=== PATIENT | male | born 1960 | race Hispanic/Latino ===

== ENCOUNTER 2017-09-11 09:51 | Emergency (ER) | payer SELFPAY ==
[~2017-09-11] VITALS: Ht 165.1 cm; Wt 68.0 kg
[2017-09-11] MEDS ORDERED: HYDROCODONE/APAP 7.5MG-325MG 1 EA TAB PO PRN (10:00)
[2017-09-11 10:37] LABS: BASOPHILS % 0.4 % (0.0-1.0); EOSINOPHILS % 9.9 % (0.0-6.0); HEMATOCRIT 40.5 % (38.2-49.6); HEMOGLOBIN 13.6 g/dL (14.0-18.0); LYMPHOCYTES # (AUTO) 2.2 (1.0-3.2); LYMPHOCYTES % 21.6 % (18.0-39.1); MEAN CORPUSCULAR HEMOGLOBIN 30.6 pg (28-32); MEAN CORPUSCULAR HGB CONC 33.6 g/dL (31-35); MONOCYTES # (AUTO) 0.9 (0.2-0.8); MONOCYTES % 8.6 % (4.4-11.3); NEUTROPHILS % 59.2 % (38.7-80.0); PLATELET COUNT 288 x10e3/uL (140-360); RED BLOOD COUNT 4.45 x10e6/uL (4.3-5.7); RED CELL DISTRIBUTION WIDTH 11.8 % (11.7-14.4)
[2017-09-11 10:56] LABS: CALCIUM 9.6 mg/dL (8.4-10.2); CREATININE, SERUM 1.56 mg/dL (0.72-1.25)
--- NOTE | 2017-09-11 11:50 | Diagnostic Imaging Report ---
PROCEDURE:ANKLE 3+ VIEWS LEFT INDICATION:Left ankle pain COMPARISON:None. FINDINGS: Normal mineralization. No acute displaced fracture or dislocation. No lytic or blastic lesions. Ankle mortise is preserved. No osteochondral lesion. No significant soft tissue swelling. CONCLUSION: No acute abnormalities. Bladimir Adair M.D. Dictated by: Bladimir Adair M.D. on 09/11/2017 at 11:58 Electronically approved by: Bladimir Adair M.D. on 09/11/2017 at 11:58
--- NOTE | 2017-09-11 11:54 | Diagnostic Imaging Report ---
PROCEDURE:X-RAY LEFT FOOT, COMPLETE COMPARISON:None. INDICATIONS:LEFT FOOT PAIN FINDINGS: Normal mineralization. No acute displaced fractures or dislocations. No lytic or blastic lesions. No cortical erosion or destruction. Bipartite tibial sesamoid. 7 mm well corticated oval shaped bony fragment medial to the navicular bone, consistent with an os tibiale externum. Vascular calcifications. No significant soft tissue swelling. CONCLUSION: No acute abnormalities. Bladimir Adair M.D. Dictated by: Bladimir Adair M.D. on 09/11/2017 at 12:02 Electronically approved by: Bladimir Adair M.D. on 09/11/2017 at 12:02
[2017-09-11 12:14] VITALS: BP 109/86
== END 2017-09-11 12:30 | disposition home or self-care (01) ==
LOC: ER 09:51
DX: M25.572 Pain in left ankle and joints of left foot (principal); M10.372 Gout due to renal impairment, left ankle and foot; R26.2 Difficulty in walking, not elsewhere classified
CPT/HCPCS: 36415; 80048; 84550; 85025; 99284

== ENCOUNTER 2018-03-26 12:42 | Emergency (ER) | payer SELFPAY ==
[~2018-03-26] VITALS: Ht 165.1 cm; Wt 68.0 kg
[2018-03-26] MEDS ORDERED: HYDROCODONE/APAP 10MG-325MG TAB PO ONE ×2 (13:15→16:45)
[2018-03-26] MEDS ORDERED: DEXAMETHASONE SOD PHOS 10 MG/1 ML VIAL INJ ONE (16:45)
[2018-03-26] MEDS ORDERED: KETOROLAC TROMETHAMINE 60 MG/2 ML VIAL IM ONE (16:45)
[2018-03-26 17:21] VITALS: BP 133/70
--- NOTE | 2018-03-26 20:52 | Diagnostic Imaging Report ---
PROCEDURE:X-RAY LEFT KNEE, THREE OR MORE VIEWS COMPARISON:None. INDICATIONS:FELL, PAIN IN LEFT KNEE FINDINGS: Normal mineralization. No acute displaced fracture or dislocation. No lytic or blastic lesion. Joint spaces are preserved. Moderate suprapatellar effusion. CONCLUSION: Moderate suprapatellar effusion. No acute displaced fracture or dislocation. Bladimir Adair M.D. Dictated by: Bladimir Adair M.D. on 03/26/2018 at 14:55 Electronically approved by: Bladimir Adair M.D. on 03/26/2018 at 14:55
== END 2018-03-26 17:22 | disposition home or self-care (01) ==
LOC: ER 12:42
DX: M25.562 Pain in left knee (principal); R26.2 Difficulty in walking, not elsewhere classified
CPT/HCPCS: 73562; 99284; J1100; J1885

== ENCOUNTER 2018-06-30 08:19 | Emergency (ER) | payer SELFPAY ==
[~2018-06-30] VITALS: Ht 165.1 cm; Wt 68.0 kg
--- NOTE | 2018-06-30 10:23 | Diagnostic Imaging Report ---
Exam: Right foot series, 3 views. Clinical History: Swelling Comparison: None. Findings: 3 views of the right foot. There is normalbone mineralization. Negative for fracture or dislocation. Joint spaces are preserved. Lis franc alignment is normal. Negative for abnormal soft tissue calcification. Impression: Unremarkable right foot radiographs. Signed by: Dr. Jesús Richards MD on 06/30/2018 10:20 AM
[2018-06-30] MEDS ORDERED: ULTRAM50 MG PO (10:53)
[2018-06-30 11:18] VITALS: BP 123/82
== END 2018-06-30 11:22 | disposition home or self-care (01) ==
LOC: ER 08:19
DX: M25.571 Pain in right ankle and joints of right foot (principal); W22.8XXA Striking against or struck by other objects, initial encounter
CPT/HCPCS: 99283

== ENCOUNTER 2018-07-02 14:08 | Emergency (ER) | payer SELFPAY ==
[~2018-07-02] VITALS: Ht 165.1 cm; Wt 68.0 kg
[~2018-07-02 14:08] MED LIST: ULTRAM50 MG PO
[2018-07-02] MEDS ORDERED: KETOROLAC TROMETHAMINE 60 MG/2 ML VIAL IM ONE (14:30)
[2018-07-02] MEDS ORDERED: DEXAMETHASONE SOD PHOS 10 MG/1 ML VIAL INJ ONE (14:30)
[2018-07-02] MEDS ORDERED: DEXAMETHASONE SOD PHOS 10 MG/1 ML VIAL ONE (14:46)
[2018-07-02 15:32] VITALS: BP 106/78
[2018-07-02] MEDS ORDERED: COLCHICINE 0.6 MG TAB PO ONE (17:00)
== END 2018-07-02 15:41 | disposition home or self-care (01) ==
LOC: ER 14:08
DX: M10.071 Idiopathic gout, right ankle and foot (principal); F17.210 Nicotine dependence, cigarettes, uncomplicated
CPT/HCPCS: 99282; J1100; J1885

== ENCOUNTER → 2018-10-30 | Emergency (ER) | payer SELFPAY ==
[~2018-10-30] VITALS: Ht 165.1 cm; Wt 68.0 kg
[~2018-10-30] MED LIST changes: +BUPIVACAINE HCL 0.5% 10ML MPF VIAL INJ ONE; +HYDROMORPHONE 2MG/ML 2 MG/ML ML IM PRN; +METHYLPREDNISOLONE ACETATE 80 MG/ML VIAL INJ ONE; +ONDANSETRON HCL INJ 2MG/ML 2ML 2 MG/ML VIAL ONE; +ULTRAM 50MG50 MG PO
[2018-10-31 06:05] VITALS: BP 133/96
== END | disposition home or self-care (01) ==
LOC: ER 23:44
DX: M25.562 Pain in left knee (principal); M25.462 Effusion, left knee; M10.9 Gout, unspecified
CPT/HCPCS: 99283

== ENCOUNTER 2018-12-06 10:17 | Emergency (ER) | payer SELFPAY ==
[~2018-12-06] VITALS: Ht 165.1 cm; Wt 68.0 kg
[~2018-12-06 10:17] MED LIST changes: -BUPIVACAINE HCL 0.5% 10ML MPF VIAL INJ ONE; -HYDROMORPHONE 2MG/ML 2 MG/ML ML IM PRN; -METHYLPREDNISOLONE ACETATE 80 MG/ML VIAL INJ ONE; -ONDANSETRON HCL INJ 2MG/ML 2ML 2 MG/ML VIAL ONE
== END 2018-12-06 10:42 | disposition left against medical advice (07) ==
LOC: ER 10:17
DX: Z76.0 Encounter for issue of repeat prescription (principal)

== ENCOUNTER 2020-02-08 16:21 | Emergency (ER) | payer SELFPAY ==
[~2020-02-08] VITALS: Ht 165.1 cm; Wt 68.0 kg
--- OUTSIDE RECORDS SUMMARY | 2020-02-08 16:24 | XMS REPORT ---
Author Author [facility] Organization [facility] Address 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 Allergies, Adverse Reactions, Alerts This patient has no known allergies or adverse reactions. Medications Ordered Medication Name Filled Medication Name Start Date Stop Da te Current Medication? Ordering Clinician Indication Dosage Frequency Signature (SIG) Comments Components Source Tramadol Hcl (Ultram) 50 Mg Tablet Tramadol Hcl (Ultram) 50 Mg Tablet 2018-06-30 00:00:00 Yes Oliverio Sales Md 50 Every 6 Hours as needed for Pain [facility] Procedures This patient has no known procedures. Encounters Start Date/Time End Date/Time [facility] ID Source 2018-07-02 14:08:00 2018-07-02 15:41:00 Departed Emergency Room [facility] [id number] [facility] 2018-06-30 08:19:00 2018-06-30 11:22:00 Departed Emergency Room 1 OLIVERIO SALES [facility] [id number] [facility] 2018-03-26 12:42:00 2018-03-26 17:22:00 Departed Emergency Room 1 FREDDY MELARA [facility] [id number] [facility] 2017-09-11 09:51:00 2017-09-11 12:30:00 Departed Emergency Room ER ELIO IRVING [facility] [id number] [facility] Results Test Description Test Time Test Comments Results Result Comments Source KNEE LEFT THREE VIEWS 2018-10-31 07:47:00 [place] [address] Patient Name: CONNOR JAVED MR #: [id number] : 1960 Age/Sex: 57/M Req #: [id number] Adm Physician: Ordered by: CLARISA DAWSON FACE WORKER Report #: [id number] Location: ER Room/Bed: Procedure: [id number] DX/KNEE LEFT THREE VIEWS Exam Date: 10/30/18 Exam Time: 1704 REPORT STATUS: Signed Exam: Left knee 3 views History: Anterior knee pain, trauma Comparison: None. Findings: No acute, displaced fracture or dislocation. Joint space is well-maintained. No definite joint effusion. Mild prepatellar soft tissue swelling. No focal soft tissue abnormalities otherwise. Impression: Mild prepatellar soft tissue swelling without underlying acute osseous abnormality. Signed by: Dr. Gladis Massey M.D. on 10/31/2018 7:49 AM Dictated By: GLADIS MASSEY MD Transcribed By: MANA on 10/31/1849 COPY TO: KELLEN DAWSONDRO Leticia FACE WORKER FOOT RIGHT COMPLETE 2018-06-30 10:18:00 [facility] [address] [address] Patient Name: CONNOR WARE MR #: [id number] : 1960 Age/Sex: 57/M Req #: [id number] Adm Physician: Ordered by: OLIVERIO SALES MD Report #: [id number] Location: ER Room/Bed: Procedure: [id number] DX/FOOT RIGHT COMPLETE Exam Date: 06/30/18 Exam Time: 0945 REPORT STATUS: Signed Exam: Right foot series, 3 views. Clinical History: Swelling Comparison: None. Findings: 3 views of the right foot. There is normalbone mineralization. Negative for fracture or dislocation. Joint spaces are preserved. Lis franc alignment is normal. Negative for abnormal soft tissue calcification. Impression: Unremarkable right foot radiographs. Signed by: Dr. Petros Núñez MD on 06/30/2018 10:20 AM Dictated By: PETROS NÚÑEZ MD 1020 Transcribed By: MANA on 06/30/18 1020 COPY TO: OLIVERIO SALES MD KNEE LEFT THREE VIEWS 2018-03-26 14:55:00 [facility] [address] [address] Patient Name: CONNOR WARE MR #: [id number] : 1960 Age/Sex: 57/M Req #: [id number] Adm Physician: Ordered by: JANAK SORENOSN FACE WORKER Report #: [id number] Location: ER Room/Bed: Procedure: [id number] DX/KNEE LEFT THREE VIEWS Exam Date: 03/26/18 Exam Time: 1410 REPORT STATUS: Signed PROCEDURE: X-RAY LEFT KNEE, THREE OR MORE VIEWS COMPARISON: None. INDICATIONS: FELL, PAIN IN LEFT KNEE FINDINGS: Normal mineralization. No acute displaced fracture or dislocation. No lytic or blastic lesion. Joint spaces are preserved. Moderate suprapatellar effusion. CONCLUSION: Moderate suprapatellar effusion. No acute displaced fracture or dislocation. Bladimir Aguirre M.D. Dictated by: Bladimir Aguirre M.D. on 03/26/2018 at 14:55 Electronically approved by: Bladimir Aguirre M.D. on 03/26/2018 at 14:55 Dictated By: BLADIMIR AGUIRRE MD 1455 Transcribed By: SAWYER on 03/26/18 1455 COPY TO: JANAK SORENSON FACE WORKER Sodium Level 2017-09-11 11:00:00 Test Item Sodium Level (test code = 2951-2) 142 136-145 [facility] Hhgyn4229-91-90 11:00:00* Test Item Value Reference Range Interpretation Comments Potassium Level (test code = 2823-3) 4.0 3.5-5.1 [facility] HospitalChloride Rdqmg6328-26-06 11:00:00* Test Item Value Reference Range Interpretation Comments Chloride Level (test code = 2075-0) 109 98-107 [facility] HospitalCarbon Dioxide Nrbjy8275-05-79 11:00:00* Test Item Value Reference Range Interpretation Comments Carbon Dioxide Level (test code = 2028-9) 23 22-29 [facility] HospitalAnion Hmw8587-14-57 11:00:00* Test Item Value Reference Range Interpretation Comments Anion Gap (test code = 14459-7) 14.0 8-16 [facility] HospitalBlood Urea Xgcifroa9307-27-96 11:00:00* Test Item Value Reference Range Interpretation Comments Blood Urea Nitrogen (test code = 3094-0) 30 7- [facility] HospitalCreatinine2017-12-19 11:00:00* Test Item Value Reference Range Interpretation Comments Creatinine (test code = 2160-0) 1.56 0.72-1.25 [facility] HospitalBUN/Creatinine Ilfqx2145-71-25 11:00:00* Test Item Value Reference Range Interpretation Comments BUN/Creatinine Ratio (test code = 3097-3) 19 6- [facility] HospitalEstimat Glomerular Filtration Rate 2017-09-11 11:00:00* Test Item Value Reference Range Interpretation Comments Estimat Glomerular Filtration Rate (test code = 486977852) 46 >60 Ranges were taken from the National Kidney Disease Education Program and the [place] [facility] [employer] Foundation literature.Reference ranges:60 or greater: Kifpmg89-60 ( for 3 consecutive months): Chronic kidney disease 15 or less: Kidney failureTexas Children's HospitalGlucose Mobdt5732-72-33 11:00:00* Test Item Value Reference Range Interpretation Comments Glucose Level (test code = BBY9457) 105 74-118 [facility] HospitalCalcium Qggrn2558-67-59 11:00:00* Test Item Value Reference Range Interpretation Comments Calcium Level (test code = 74817-6) 9.6 8.4-10.2 [facility] HospitalUric Qdfl1508-97-85 11:00:00* Test Item Value Reference Range Interpretation Comments Uric Acid (test code = 3084-1) 8.3 3.5-7.2 [facility] HospitalWhite Blood Jbbnn2273-10-38 10:56:00* Test Item Value Reference Range Interpretation Comments White Blood Count (test code = 6690-2) 10.18 4.8-10.8 [facility] HospitalRed Blood Wdhyq7852-04-71 10:56:00* Test Item Value Reference Range Interpretation Comments Red Blood Count (test code = 789-8) 4.45 4.3-5.7 [facility] HospitalHemoglobin2017-12-19 10:56:00* Test Item Value Reference Range Interpretation Comments Hemoglobin (test code = 02563-5) 13.6 14.0-18.0 [facility] HospitalHematocrit2017-12-19 10:56:00* Test Item Value Reference Range Interpretation Comments Hematocrit (test code = 4544-3) 40.5 38.2-49.6 [facility] HospitalMean Corpuscular Ueofxw0629-57-55 10:56:00* Test Item Value Reference Range Interpretation Comments Mean Corpuscular Volume (test code = 787-2) 91.0 81-99 [facility] HospitalMean Corpuscular Rozmjrxwqg5343-48-31 10:56:00* Test Item Value Reference Range Interpretation Comments Mean Corpuscular Hemoglobin (test code = 785-6) 30.6 28-32 [facility] Hemoglobin Concent 2017-09-11 10:56:00* Test Item Value Reference Range Interpretation Comments Mean Corpuscular Hemoglobin Concent (test code = 786-4) 33.6 31-35 [facility] HospitalRed Cell Distribution Zpiix0958-81-40 10:56:00* Test Item Value Reference Range Interpretation Comments Red Cell Distribution Width (test code = 52817-0) 11.8 11.7 -14.4 [facility] HospitalPlatelet Pxsbc6272-85-75 10:56:00* Test Item Value Reference Range Interpretation Comments Platelet Count (test code = 777-3) 288 140-360 [facility] HospitalNeutrophils (%) (Auto)2017-09-11 10:56:00 * Test Item Value Reference Range Interpretation Comments Neutrophils (%) (Auto) (test code = 54930-4) 59.2 38.7-80.0 [facility] HospitalLymphocytes (%) (Auto)2017-09-11 10:56:00 * Test Item Value Reference Range Interpretation Comments Lymphocytes (%) (Auto) (test code = 736-9) 21.6 18.0-39.1 [facility] HospitalMonocytes (%) (Auto)2017-09-11 10:56:00* Test Item Value Reference Range Interpretation Comments Monocytes (%) (Auto) (test code = 5905-5) 8.6 4.4-11.3 [facility] HospitalEosinophils (%) (Auto)2017-09-11 10:56:00 * Test Item Value Reference Range Interpretation Comments Eosinophils (%) (Auto) (test code = 713-8) 9.9 0.0-6.0 [facility] HospitalBasophils (%) (Auto)2017-09-11 10:56:00* Test Item Value Reference Range Interpretation Comments Basophils (%) (Auto) (test code = 706-2) 0.4 0.0-1.0 [facility] HospitalIM GRANULOCYTES %2017-09-11 10:56:00* Test Item Value Reference Range Interpretation Comments IM GRANULOCYTES % (test code = IM GRANULOCYTES %) 0.3 0.0- 1.0 [facility] HospitalNeutrophils # (Auto)2017-09-11 10:56:00* Test Item Value Reference Range Interpretation Comments Neutrophils # (Auto) (test code = 751-8) 6.0 2.1-6.9 [facility] HospitalLymphocytes # (Auto)2017-09-11 10:56:00* Test Item Value Reference Range Interpretation Comments Lymphocytes # (Auto) (test code = 55018-9) 2.2 1.0-3.2 [facility] HospitalMonocytes # (Auto)2017-09-11 10:56:00* Test Item Value Reference Range Interpretation Comments Monocytes # (Auto) (test code = 742-7) 0.9 0.2-0.8 [facility] HospitalEosinophils # (Auto)2017-09-11 10:56:00* Test Item Value Reference Range Interpretation Comments Eosinophils # (Auto) (test code = 711-2) 1.0 0.0-0.4 [facility] HospitalBasophils # (Auto)2017-09-11 10:56:00* Test Item Value Reference Range Interpretation Comments Basophils # (Auto) (test code = 704-7) 0.0 0.0-0.1 [facility] HospitalAbsolute Immature Granulocyte (auto 2017-09-11 10:56:00* Test Item Value Reference Range Interpretation Comments Absolute Immature Granulocyte (auto (daniel t code = Absolute Immature Granulocyte (auto) 0.03 0-0.1 [facility] HospitalANKLE 3+ VIEWS LEFT [facility] [address] [address] Patient Name: CONNOR WARE MR #: [id number] : 1960 Age/Sex: 56/M Req #: [id number] Adm Physician: Ordered by: ELIO IRVING MD Report #: [id number] Location: ER Room/Bed: Procedure: [id number] DX/ANKLE 3+ VIEWS LEFT Exam D ate: 09/11/17 Exam Time: 1020 REPORT STATUS: Si gned PROCEDURE: ANKLE 3+ VIEWS LEFT INDICATION: Left ankle pain CO MPARISON: None. FINDINGS: Normal mineralization. No acute displaced frac ture or dislocation. No lytic or blastic lesions. Ankle mortise is preser luis. No osteochondral lesion. No significant soft tissue swelling. CONCLUSION: No acute abnormalities. Bladimir Aguirre M.D. Dictated by: Bladimir Aguirre M.D. on 09/11/2017 at 11:58 E lectronically approved by: Bladimir Aguirre M.D. on 09/11/2017 at 11:58 Dictated By: BLADIMIR AGUIRRE MD 1158 Transcribed By: SAWYER on 09/11/17 1158 COPY TO: ELIO IRVING MD FOOT LEFT COMPLETE [place] [address] Patient Name: CONNOR WARE MR #: [id number] : 1960 Age/Sex: 56/M Req #: [id number] Adm Physician: Ordered by: ELIO IRVING MD Report #: [id number] Location: ER Room/Bed: Procedure: [id number] DX/FOOT LEFT COMPLETE Exam Da te: 09/11/17 Exam Time: 1020 REPORT STATUS: Sig erinn PROCEDURE: X-RAY LEFT FOOT, COMPLETE COMPARISON: None. IN DICATIONS: LEFT FOOT PAIN FINDINGS: Normal mineralization. No acute displaced fractures or dislocations. No lytic or blastic lesions. No cortic al erosion or destruction. Bipartite tibial sesamoid. 7 mm well corticated o raul shaped bony fragment medial to the navicular bone, consistent with an os tibiale externum. Vascular calcifications. No significant soft tissue swelli ng. CONCLUSION: No acute abnormalities. Bladimir Aguirre M.D. Dictated by: Bladimir Aguirre M.D. on 09/11/2017 at 12:02 Mi ctronically approved by: Bladimir Aguirre M.D. on 09/11/2017 at 12:02 Dictated By: BLADIMIR AGUIRRE MD 01 Transcribed By: SAWYER on 09/11/171201 COPY TO: ELIO IRVING MD
[2020-02-08] MEDS ORDERED: HYDROCODONE/APAP 7.5MG-325MG 1 EA TAB PO PRN (16:45)
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
== END 2020-02-08 18:09 | disposition home or self-care (01) ==
LOC: ER 16:21
DX: S00.83XA Contusion of other part of head, initial encounter (principal); R51 Headache; Y04.8XXA Assault by other bodily force, initial encounter; Y92.89 Other specified places as the place of occurrence of the external cause; M10.9 Gout, unspecified
CPT/HCPCS: 70450; 70486; 72125; 99282

== ENCOUNTER 2020-10-09 20:49 | Emergency (ER) | payer SELFPAY ==
[~2020-10-09] VITALS: Ht 165.1 cm; Wt 68.0 kg
[2020-10-09] MEDS ORDERED: COLCRYS0.6 MG PO (21:06)
[2020-10-09] MEDS ORDERED: ULTRAM50 MG PO (21:06)
== END 2020-10-09 21:15 | disposition home or self-care (01) ==
LOC: ER 20:56
DX: M10.9 Gout, unspecified (principal)
CPT/HCPCS: 99282

== ENCOUNTER 2021-03-18 10:01 | Emergency (ER) | payer SELFPAY ==
[~2021-03-18] VITALS: Ht 172.7 cm; Wt 72.6 kg
[~2021-03-18 10:01] MED LIST changes: +COLCRYS0.6 MG PO
[2021-03-18] MEDS ORDERED: METHYLPREDNISOLONE SOD SUCC 125 MG/2ML VIAL IM ONE (10:30)
[2021-03-18] MEDS ORDERED: KETOROLAC TROMETHAMINE 60 MG/2 ML VIAL IM ONE (10:30)
[2021-03-18] MEDS ORDERED: METHOCARBAMOL 750 MG TAB PO ONE (10:30)
[2021-03-18 11:37] VITALS: BP 130/62
[2021-03-18] MEDS ORDERED: METHOCARBAMOL750 MG PO (11:49)
[2021-03-18] MEDS ORDERED: NAPROXEN250 MG PO (11:49)
== END 2021-03-18 12:00 | disposition home or self-care (01) ==
LOC: ER 10:20
DX: M54.42 Lumbago with sciatica, left side (principal); M10.9 Gout, unspecified
CPT/HCPCS: 99282; J1885; J2930

== ENCOUNTER 2021-04-22 07:59 | Emergency (ER) | payer SELFPAY ==
[~2021-04-22] VITALS: Ht 165.1 cm; Wt 77.1 kg
[~2021-04-22 07:59] MED LIST changes: +METHOCARBAMOL750 MG PO; +NAPROXEN250 MG PO
== END 2021-04-22 09:39 | disposition home or self-care (01) ==
LOC: ER 08:02
DX: M25.561 Pain in right knee (principal); M23.91 Unspecified internal derangement of right knee; M10.9 Gout, unspecified
CPT/HCPCS: 99283

== ENCOUNTER 2021-06-02 06:31 | Emergency (ER) | payer SELFPAY ==
[~2021-06-02] VITALS: Ht 172.7 cm; Wt 81.6 kg
[2021-06-02] MEDS ORDERED: KETOROLAC TROMETHAMINE 30 MG/ML VIAL IV STA (06:38)
[2021-06-02] MEDS ORDERED: ACETAMINOPHEN 325 MG TAB PO ONE (06:45)
[2021-06-02] MEDS ORDERED: IBUPROFEN400 MG PO (06:58)
== END 2021-06-02 08:43 | disposition home or self-care (01) ==
LOC: ER 06:37
DX: M25.531 Pain in right wrist (principal); S62.111A Displaced fracture of triquetrum [cuneiform] bone, right wrist, initial encounter for closed fracture; X50.9XXA Other and unspecified overexertion or strenuous movements or postures, initial encounter; Y93.H3 Activity, building and construction; Y92.89 Other specified places as the place of occurrence of the external cause; M10.9 Gout, unspecified
CPT/HCPCS: 29125; 73110; 99283; J1885

== ENCOUNTER 2021-06-23 10:31 | Emergency (ER) | payer SELFPAY ==
[~2021-06-23] VITALS: Ht 172.7 cm; Wt 81.6 kg
[~2021-06-23 10:31] MED LIST changes: +IBUPROFEN400 MG PO
[2021-06-23] MEDS ORDERED: COLCHICINE0.6 M1 PO (12:18)
[2021-06-23] MEDS ORDERED: INDOCIN50 MG PO (12:18)
[2021-06-23 12:56] VITALS: BP 122/75
== END 2021-06-23 12:58 | disposition home or self-care (01) ==
LOC: ER 10:45
DX: M10.9 Gout, unspecified (principal); M25.572 Pain in left ankle and joints of left foot
CPT/HCPCS: 99284

== ENCOUNTER 2021-09-04 04:23 | Emergency (ER) | payer SELFPAY ==
[~2021-09-04] VITALS: Ht 170.2 cm; Wt 68.0 kg
[~2021-09-04 04:23] MED LIST changes: +COLCHICINE0.6 M1 PO; +INDOCIN50 MG PO
[2021-09-04] MEDS ORDERED: KETOROLAC TROMETHAMINE 60 MG/2 ML VIAL IM ONE (04:30)
[2021-09-04] MEDS ORDERED: KETOROLAC TROMETHAMINE 60 MG/2 ML VIAL ONE (04:46)
[2021-09-04] MEDS ORDERED: HYDROCODONE/APAP 5MG-325MG TAB PO ONE (05:30)
[2021-09-04] MEDS ORDERED: PREDNISONE 5 MG TAB PO ONE (05:30)
[2021-09-04] MEDS ORDERED: PREDNISONE 20 MG TAB PO ONE (05:45)
[2021-09-04] MEDS ORDERED: PREDNISONE 20 MG TAB ONE (05:46)
[2021-09-04 06:29] VITALS: BP 123/78
== END 2021-09-04 07:15 | disposition home or self-care (01) ==
LOC: ER 04:29
DX: M25.562 Pain in left knee (principal); X50.1XXA Overexertion from prolonged static or awkward postures, initial encounter; Y92.008 Other place in unspecified non-institutional (private) residence as the place of occurrence of the external cause; M10.9 Gout, unspecified
CPT/HCPCS: 73562; 99283; J1885; J7512

== ENCOUNTER 2021-11-17 11:32 | Emergency (ER) | payer SELFPAY ==
[~2021-11-17] VITALS: Ht 170.2 cm; Wt 68.0 kg
[2021-11-17] MEDS ORDERED: NAPROSYN500 MG PO (13:33)
== END 2021-11-17 13:51 | disposition home or self-care (01) ==
LOC: ER 11:47
DX: S83.92XA Sprain of unspecified site of left knee, initial encounter (principal); M25.562 Pain in left knee; M10.9 Gout, unspecified; M19.09 Primary osteoarthritis, other specified site
CPT/HCPCS: 99283

== ENCOUNTER 2022-04-26 23:41 | Emergency (ER) | payer SELFPAY ==
[~2022-04-26] VITALS: Ht 170.2 cm; Wt 68.0 kg
[~2022-04-26 23:41] MED LIST changes: +NAPROSYN500 MG PO
[2022-04-27] MEDS ORDERED: KETOROLAC TROMETHAMINE 30 MG/ML VIAL IM STA (00:52)
[2022-04-27] MEDS ORDERED: NAPROXEN250 MG PO (02:04)
== END 2022-04-27 02:14 | disposition home or self-care (01) ==
LOC: ER 23:52
DX: M79.672 Pain in left foot (principal); M10.9 Gout, unspecified
CPT/HCPCS: 73610; 99282; J1885

== ENCOUNTER 2022-08-20 06:20 | Emergency (ER) | payer SELFPAY ==
[~2022-08-20] VITALS: Ht 170.2 cm; Wt 68.0 kg
[2022-08-20 06:45] LABS: BASOPHILS # (AUTO) 0.1 (0.0-0.1); BASOPHILS % 0.5 % (0.0-1.0); EOSINOPHILS # (AUTO) 0.8 (0.0-0.4); EOSINOPHILS % 7.2 % (0.0-6.0); HEMATOCRIT 43.2 % (38.2-49.6); HEMOGLOBIN 13.6 g/dL (14.0-18.0); LYMPHOCYTES # (AUTO) 2.7 (1.0-3.2); LYMPHOCYTES % 24.3 % (18.0-39.1); MEAN CORPUSCULAR HEMOGLOBIN 30.7 pg (28-32); MEAN CORPUSCULAR HGB CONC 31.5 g/dL (31-35); MEAN CORPUSCULAR VOLUME 97.5 fL (81-99); MONOCYTES # (AUTO) 0.8 (0.2-0.8); MONOCYTES % 7.4 % (4.4-11.3); NEUTROPHILS # (AUTO) 6.6 (2.1-6.9); NEUTROPHILS % 60.3 % (38.7-80.0); PLATELET COUNT 260 x10e3/uL (140-360); RED BLOOD COUNT 4.43 x10e6/uL (4.3-5.7); RED CELL DISTRIBUTION WIDTH 11.8 % (11.7-14.4)
[2022-08-20 07:15] LABS: ALBUMIN 4.1 g/dL (3.5-5.0); ALBUMIN/GLOBULIN RATIO 1.2 (0.8-2.0); ANION GAP 16.3 mmol/L (8-16); CALCIUM 9.6 mg/dL (8.4-10.2); CREATININE, SERUM 1.71 mg/dL (0.72-1.25); POTASSIUM 4.3 mmol/L (3.5-5.1)
[2022-08-20] MEDS ORDERED: KETOROLAC TROMETHAMINE 30 MG/ML VIAL IV STA (07:20)
[2022-08-20] MEDS ORDERED: PREDNISONE50 MG PO (08:14)
== END 2022-08-20 08:22 | disposition home or self-care (01) ==
LOC: ER 06:25
DX: M25.561 Pain in right knee (principal); M10.9 Gout, unspecified
CPT/HCPCS: 36415; 80053; 85025; 99283

== ENCOUNTER 2022-10-19 07:16 | Emergency (ER) | payer SELFPAY ==
[~2022-10-19] VITALS: Ht 170.2 cm; Wt 68.0 kg
[~2022-10-19 07:16] MED LIST changes: +PREDNISONE50 MG PO
[2022-10-19] MEDS ORDERED: KETOROLAC TROMETHAMINE 30 MG/ML VIAL IM STA (07:42)
== END 2022-10-19 08:18 | disposition home or self-care (01) ==
LOC: ER 07:20
DX: M25.561 Pain in right knee (principal); M10.9 Gout, unspecified
CPT/HCPCS: 99282; J1885

== ENCOUNTER 2022-11-01 22:16 | Emergency (ER) | payer SELFPAY ==
[~2022-11-01] VITALS: Ht 170.2 cm; Wt 68.0 kg
[2022-11-01] MEDS ORDERED: PREDNISONE20 MG PO (22:40)
[2022-11-01] MEDS ORDERED: KETOROLAC TROME10 MG PO (22:40)
[2022-11-01] MEDS ORDERED: KETOROLAC TROMETHAMINE 60 MG/2 ML VIAL IM ONE (22:45)
[2022-11-01] MEDS ORDERED: PREDNISONE 20 MG TAB PO ONE (22:45)
== END 2022-11-01 23:08 | disposition home or self-care (01) ==
LOC: ER 22:25
DX: M25.561 Pain in right knee (principal); M10.9 Gout, unspecified; F10.10 Alcohol abuse, uncomplicated
CPT/HCPCS: 99283; J1885; J7512